=== PATIENT | female | born 1970 | race Caucasian/White ===

== ENCOUNTER 2023-04-21 17:10 | Emergency (ER) | payer SELFPAY ==
[2023-04-21] MEDS ORDERED: TDAP (DIPHTH,PERTUSS(ACELL),TET VAC) 0.5 ML VIAL IMVAC ONE (18:07)
[2023-04-21] MEDS ORDERED: KETOROLAC 30 MG/ML INJ ONE (18:31)
--- NOTE | 2023-04-21 18:52 | RAD REPORT ---
EXAM DESCRIPTION: CT - Head Brain Wo Cont - 04/21/2023 6:32 pm CLINICAL HISTORY: Headache status post head injury COMPARISON: none TECHNIQUE: Computed axial tomography of the head was obtained. IV contrast was not requested. All CT scans are performed using dose optimization technique as appropriate and may include automated exposure control or mA/KV adjustment according to patient size. FINDINGS: An intracranial bleed is not seen The ventricles are normal in caliber No significant hypodense areas within the brain visualized No extra-axial fluid collection is noted. Fluid within the sinuses/ mastoids is not seen IMPRESSION: No acute intracranial abnormality is seen If patient's symptoms persist MRI of the brain would be recommended
--- NOTE | 2023-04-21 18:55 | EDPHYS ---
Physician Documentation [facility] Name: Krystyna Devine Age: 53 yrs Sex: Female : 1970 Arrival Date: 04/21/2023 Time: 17:10 Bed 4 Private MD: ED Physician Grayson Kunz HPI: 04/21 17:35 This 53 yrs old Female presents to ER via Ambulatory with complaints of Head Injury jh7 Without LOC-Adult. 17:35 The patient or guardian reports injury, a laceration, 4 cm(s), pain. The complaints jh7 affect the top of head. Context of injury: The problem was sustained at work, resulted from a direct blow, hit head on electrical box. 18:17 Onset: The symptoms/episode began/occurred acutely. Associated signs and symptoms: Loss jh7 of consciousness: This patient did not experience any loss of consciousness. Pertinent positives: headache, injury. Historical: - Allergies: 17:35 Celebrex; cm10 17:35 Compazine; cm10 17:35 Sulfa (Sulfonamide Antibiotics); cm10 - PMHx: 17:35 None; cm10 - Immunization history:: Adult Immunizations unknown. - Social history:: Smoking status: Patient reports the use of cigarette tobacco products, smokes one-half pack cigarettes per day. ROS: 18:17 Constitutional: Negative for fever, chills, and weight loss, Eyes: Negative for injury, jh7 pain, redness, and discharge, Neck: Negative for injury, pain, and swelling, Cardiovascular: Negative for chest pain, palpitations, and edema, Respiratory: Negative for shortness of breath, cough, wheezing, and pleuritic chest pain, Abdomen/GI: Negative for abdominal pain, nausea, vomiting, diarrhea, and constipation, Back: Negative for injury and pain, MS/Extremity: Negative for injury and deformity. 18:17 Skin: Positive for laceration(s). 18:17 Neuro: Positive for dizziness, headache, Negative for altered mental status, loss of consciousness, syncope, visual changes. 18:17 All other systems are negative. Exam: 18:17 Constitutional: This is a well developed, well nourished patient who is awake, alert, jh7 and in no acute distress. Eyes: Pupils equal round and reactive to light, extra-ocular motions intact. Lids and lashes normal. Conjunctiva and sclera are non-icteric and not injected. Cornea within normal limits. Periorbital areas with no swelling, redness, or edema. Neck: Trachea midline, no thyromegaly or masses palpated, and no cervical lymphadenopathy. Supple, full range of motion without nuchal rigidity, or vertebral point tenderness. No Meningismus. Cardiovascular: Regular rate and rhythm with a normal S1 and S2. No gallops, murmurs, or rubs. Normal PMI, no JVD. No pulse deficits. Respiratory: Lungs have equal breath sounds bilaterally, clear to auscultation and percussion. No rales, rhonchi or wheezes noted. No increased work of breathing, no retractions or nasal flaring. Abdomen/GI: Soft, non-tender, with normal bowel sounds. No distension or tympany. No guarding or rebound. No evidence of tenderness throughout. Back: No spinal tenderness. No costovertebral tenderness. Full range of motion. MS/ Extremity: Pulses equal, no cyanosis. Neurovascular intact. Full, normal range of motion. Neuro: Awake and alert, GCS 15, oriented to person, place, time, and situation. Cranial nerves II-XII grossly intact. Motor strength 5/5 in all extremities. Sensory grossly intact. Cerebellar exam normal. Normal gait. 18:17 Head/face: Exam is negative for ramirez signs, raccoon eyes, Noted is a laceration(s), that is linear, 4 cm(s). 18:17 Skin: injury, laceration(s), the wound is approximately 4 cm(s), of the L parietal jh7 scalp, that can be described as linear, with mild bleeding. Vital Signs: 17:33 BP 177 / 114; Pulse 67; Resp 16; Temp 99.5(O); Pulse Ox 99% ; Weight 72.57 kg; Height 5 cm10 ft. 6 in. ; Pain 8/10; 18:04 BP 171 / 105; Pulse 89; Resp 16; Pulse Ox 98% on R/A; iw 19:15 BP 145 / 89; Pulse 83; Resp 18; Temp 98; Pulse Ox 98% on R/A; rv 17:33 Body Mass Index 25.82 (72.57 kg, 167.64 cm) cm10 17:33 Pain Scale: Adult cm10 Arlen Coma Score: 18:17 Eye Response: spontaneous(4). Motor Response: obeys commands(6). Verbal Response: jh7 oriented(5). Total: 15. 18:57 Eye Response: spontaneous(4). Motor Response: obeys commands(6). Verbal Response: jh7 oriented(5). Total: 15. 19:15 Eye Response: spontaneous(4). Motor Response: obeys commands(6). Verbal Response: rv oriented(5). Total: 15. Laceration: 18:17 Wound Repair of 4cm ( 1.6in ) subcutaneous laceration to L parietal scalp. Distal jh7 neuro/vascular/tendon intact. Skin closed with 7 1-0 Nikko using staple gun. Dressed with non-adherent dressing. Patient tolerated well. MDM: 17:21 Patient medically screened. [facility] 18:57 Differential diagnosis: Contusion of Hematoma on Laceration of Intracranial bleed- jh7 Concussion without LOC. Data reviewed: vital signs, nurses notes, radiologic studies, CT scan. I considered the following discharge prescriptions or medication management in the emergency department Medications were administered in the Emergency Department. See MAR. Counseling: I had a detailed discussion with the patient and/or guardian regarding: the historical points, exam findings, and any diagnostic results supporting the discharge/admit diagnosis, the need for outpatient follow up, for staple removal in 7 days., to return to the emergency department if symptoms worsen or persist or if there are any questions or concerns that arise at home. 04/21 17:29 Order name: CT Head Brain wo Cont; Complete Time: 18:53 [facility] 04/21 17:29 Order name: Wound Care; Complete Time: 17:52 [facility] 04/21 18:04 Order name: Misc. Order: stapler, staple remover, gauze; Complete Time: 19:14 [facility] 04/21 18:54 Order name: Recheck B/P; Complete Time: 19:14 [facility] Administered Medications: 18:01 Drug: Boostrix Tdap IM 0.5 ml Route: IM; Site: left deltoid; iw 19:14 Follow up: Response: No adverse reaction rv 18:26 Drug: Ketorolac IM 60 mg Route: IM; Site: left ventrogluteal; iw 19:14 Follow up: Response: No adverse reaction rv Disposition: 04/22 06:59 Co-signature as Attending Physician, Grayson Kunz MD I reviewed the patient's care rn provided by the Advanced Practice Provider and agree with the diagnosis and treatment plan. Disposition Summary: 04/21/23 18:54 Discharge Ordered Location: Home [facility] Problem: new jh7 Symptoms: have improved jh7 Condition: Stable jh7 Diagnosis - Laceration without foreign body of scalp jh7 Followup: [facility] - With: Private Physician - When: 7 - 10 days - Reason: Staple/Suture removal Discharge Instructions: - Discharge Summary Sheet [facility] - Head Injury, Adult jh7 - Laceration Care, Adult [facility] Forms: - Medication Reconciliation Form [facility] - Thank You Letter [facility] - Patient Portal Instructions [facility] Signatures: Dispatcher [employer] Akanksha Colindres RN Grayson Garay MD MD rn Miley Locke, WIRE BRUSHER WIRE BRUSHER [facility] Bria Taylor RN RN cm10 Chad Shah RN rv Corrections: (The following items were deleted from the chart) 04/21 18:19 17:35 Context of injury: The problem was sustained at work, resulted from a direct 7 blow, [facility]
--- NOTE | 2023-04-21 18:55 | ER ---
Nurse's Notes [facility] Name: Krystyna Devine Age: 53 yrs Sex: Female : 1970 Arrival Date: 04/21/2023 Time: 17:10 Bed 4 Private MD: Diagnosis: Laceration without foreign body of scalp Presentation: 04/21 17:33 Chief complaint: Patient states: hitting her head on the corner of an electrical box. cm10 Pt has dry blood noted to scalp. No LOC, not on blood thinners. Coronavirus screen: Vaccine status: Patient reports receiving the 2nd dose of the covid vaccine. Ebola Screen: Patient denies travel to an Ebola-affected area in the 21 days before illness onset. No symptoms or risks identified at this time. Initial Sepsis Screen: Does the patient meet any 2 criteria? No. Patient's initial sepsis screen is negative. Does the patient have a suspected source of infection? No. Patient's initial sepsis screen is negative. Risk Assessment: Do you want to hurt yourself or someone else? Patient reports no desire to harm self or others. Onset of symptoms was April 21, 2023. 17:33 Method Of Arrival: Ambulatory cm10 17:33 Acuity: KLEVER 4 cm10 Triage Assessment: 19:16 General: Appears in no apparent distress. Behavior is calm, cooperative. rv Historical: - Allergies: 17:35 Celebrex; cm10 17:35 Compazine; cm10 17:35 Sulfa (Sulfonamide Antibiotics); cm10 - PMHx: 17:35 None; cm10 - Immunization history:: Adult Immunizations unknown. - Social history:: Smoking status: Patient reports the use of cigarette tobacco products, smokes one-half pack cigarettes per day. Screenin:[facility] ED Fall Risk Assessment (Adult) History of falling in the last 3 months, rv including since admission No falls in past 3 months (0 pts) Confusion or Disorientation No (0 pts) Intoxicated or Sedated No (0 pts) Impaired Gait No (0 pts) Mobility Assist Device Used No (0 pt) Altered Elimination No (0 pt) Score/Fall Risk Level 0 - 2 = Low Risk Oriented to surroundings, Maintained a safe environment, Educated pt \T\ family on fall prevention, incl call for assistance when getting out of bed, Assessed \T\ reinforced patient's understanding of fall precautions, Provided non-skid footwear, Hourly rounding (assess needs \T\ fall precautionary measures) done, Used ambulatory aids as needed (educated on \T\ assisted with), Used gait belt as appropriate. Abuse screen: Denies threats or abuse. Denies injuries from another. Nutritional screening: No deficits noted. Tuberculosis screening: No symptoms or risk factors identified. Assessment: 19:16 Reassessment: No changes from previously documented assessment. Pain: Denies pain. rv Vital Signs: 17:33 BP 177 / 114; Pulse 67; Resp 16; Temp 99.5(O); Pulse Ox 99% ; Weight 72.57 kg; Height 5 cm10 ft. 6 in. ; Pain 8/10; 18:04 BP 171 / 105; Pulse 89; Resp 16; Pulse Ox 98% on R/A; iw 19:15 BP 145 / 89; Pulse 83; Resp 18; Temp 98; Pulse Ox 98% on R/A; rv 17:33 Body Mass Index 25.82 (72.57 kg, 167.64 cm) cm10 17:33 Pain Scale: Adult cm10 Arlen Coma Score: 18:17 Eye Response: spontaneous(4). Motor Response: obeys commands(6). Verbal Response: jh7 oriented(5). Total: 15. 18:57 Eye Response: spontaneous(4). Motor Response: obeys commands(6). Verbal Response: jh7 oriented(5). Total: 15. 19:15 Eye Response: spontaneous(4). Motor Response: obeys commands(6). Verbal Response: rv oriented(5). Total: 15. ED Course: 17:13 Patient arrived in ED. rg4 17:21 Miley Locke FNP [facility]. jh7 17:21 Grayson Kunz MD is Attending Physician. jh7 17:35 Triage completed. cm10 17:36 Arm band placed on. cm10 17:44 Akanksha Keene, JOANIE is Primary Nurse. iw 18:33 CT Head Brain wo Cont In Process Unspecified. EDMS 19:16 Patient has correct armband on for positive identification. Bed in low position. Call rv light in reach. Side rails up X 1. Provided Education on: HEADACHE. 19:16 No provider procedures requiring assistance completed. Patient did not have IV access rv during this emergency room visit. Administered Medications: 18:01 Drug: Boostrix Tdap IM 0.5 ml Route: IM; Site: left deltoid; iw 19:14 Follow up: Response: No adverse reaction rv 18:26 Drug: Ketorolac IM 60 mg Route: IM; Site: left ventrogluteal; iw 19:14 Follow up: Response: No adverse reaction rv Medication: 19:16 VIS not applicable for this client. rv Outcome: 18:54 Discharge ordered by MD. bueno 19:17 Discharged to home ambulatory, with friend. rv 19:17 Condition: good 19:17 Discharge instructions given to patient, Instructed on discharge instructions, follow up and referral plans. Demonstrated understanding of instructions, follow-up care. 19:17 Patient left the ED. rv Signatures: Dispatcher [employer] EDAkanksha Schilling, RN Avis Olivera rg4 Chad Shah RN RN Miley Haynes, SALES ASSISTANT DISPLAYS SALES ASSISTANT DISPLAYS 7 Bria Taylor RN RN cm10
[2023-04-21 19:36] VITALS: O2SAT 98
[2023-04-21 19:38] VITALS: BP 145/89; TEMP 98
== END 2023-04-21 19:17 | disposition home or self-care (01) ==
LOC: ER 17:10
PROC: 0HQ0XZZ Repair Scalp Skin, External Approach (ICD-10-PCS; principal; 2023-04-21)
DX: S01.01XA Laceration without foreign body of scalp, initial encounter (principal); F17.210 Nicotine dependence, cigarettes, uncomplicated; Z88.1 Allergy status to other antibiotic agents; Z88.2 Allergy status to sulfonamides; Z88.8 Allergy status to other drugs, medicaments and biological substances
CPT/HCPCS: 70450; 96372; 99284